=== PATIENT | female | born 1955 | race Caucasian/White ===

== ENCOUNTER 2017-12-14 09:18 | Day surgery (SDC) | payer BC ==
[~2017-12-14] VITALS: Ht 162.6 cm; Wt 56.7 kg
[~2017-12-14 09:18] MED LIST: ADVIL,NUPRIN,M200 MG PO; ASPIRIN BUFFER325 MG PO; BENADRYL25 MG PO; CALCIUM + D3 E1 EACH PO; HYLANDS PO; MELATONIN3 MG PO; WOMEN'S DAILY1 EAC1 PO
[2017-12-14] MEDS ORDERED: POLYTRIM EYE DR10 ML RIGHT EYE (10:02)
[2017-12-14] MEDS ORDERED: ACETAMINOPHEN500 MG PO (10:05)
[2017-12-14 10:34] VITALS: BP 110/56
[2017-12-14 13:40] VITALS: BP 133/74
[2017-12-14 14:15] VITALS: BP 117/56
== END 2017-12-14 14:20 | disposition home or self-care (01) ==
LOC: SDC 09:18
DX: H33.41 Traction detachment of retina, right eye (principal); Z79.82 Long term (current) use of aspirin; Z88.5 Allergy status to narcotic agent
CPT/HCPCS: J0690